=== PATIENT | female | born 1980 | race Caucasian/White ===

== ENCOUNTER 2016-12-20 07:57 | Inpatient (IN) | payer OTHER ==
[2016-12-20] VITALS (53 sets, daily range): BP systolic 79–137; BP diastolic 33–90; PULSE 53–166; RESP 16–20; TEMP 97.3–99; O2SAT 95–100
[~2016-12-20 07:57] MED LIST: ACET325T11 PO; IBUP600 PO; MULT-65 PO; OXYC1SOL5 PO; PERI8.6T PO; TUMS500C PO; UNIS25TA2
[2016-12-20] MEDS ORDERED: LACTATED RINGER'S 1000 ML INJ 1,000 ML IV PRN (08:46)
[2016-12-20] MEDS ORDERED: LACTATED RINGER'S 1000 ML INJ 1,000 ML IV SCH ×2 (08:46→18:11)
--- NOTE | 2016-12-20 08:56 | PD ---
HPI Chief Complaint contractions Date Seen: Dec 20, 2016 Travel History International Travel<30 Days: No Contact w/Intl Traveler<30Days: No Known Affected Area: No History of Present Illness HPI 36 yo @ 38w3d with NICHOL 12-31-2016. care with Dr. Diane. Uncomplicated . Desires DAVIE. Patient reports increased UC since 4am. No LOF, VB. +FM. History Past Medical History Narrative Medical Hx GDM Obstetric History Obstetric History for arrest of descent/FHR tracing Past Surgical History Narrative Surgical Family History Family History: Negative Social History Alcohol Use: No Tobacco Use: No Substance Abuse: No Allergies-Medications (Allergen,Severity, Reaction): Coded Allergies: No Known Allergies (Unverified , 04/05/13) Home Meds Active Scripts Oxycodone W/ Acetaminophen (Oxycodone/Acetaminophen 5-325 mg/5Ml)1 Tab Tab1 Tab PO Q4H PRN (PAIN SCALE 5 TO 10) #45 TAB Prov:Candy Diane MD 01/06/15 Ibuprofen (Motrin 600 Mg Tab)600 Mg [id number] Mg PO Q6H PRN (PAIN SCALE 1 TO 4) # 30 TAB Prov:Candy Diane MD 01/06/15 Sennosides-Docusate Sodium (Kary-Colace 8.6-50 mg)1 Tab Tab2 Tab PO Q12H #20 TAB Ref 0 Prov:Denisa Andujar CNM [employer] 01/05/15 Reported Medications Acetaminophen (Tylenol 325 Mg Tab)325 Mg [id number] Mg PO Q4 PRN (FEVER) 01/03/15 Calcium Carbonate (Tums)500 Mg [id number] Mg PO DAILY 01/03/15 Doxylamine Succinate (Sleep) (Unisom)25 Mg Tab 01/03/15 Multiple Vitamin (Multi-Vitamin Daily)Daily Tab1 Tab PO DAILY 04/05/13 Review of Systems General / Constitutional: No: Fever, Chills Eyes: No: Blurred Vision, Visual changes HENT: No: Headaches, Lightheadedness Cardiovascular: No: Chest Pain or Discomfort, Palpitations Respiratory: No: Cough, Short of Breath Gastrointestinal: Abdominal Pain (contractions), No: Nausea, Vomiting, Constipation, Loss of Appetite Genitourinary: No: Urgency, Frequency, Dysuria, Discharge, Vaginal Bleeding Musculoskeletal: No: Limited ROM, Weakness Skin: No Rash, No Itching Neurologic: No: Syncope, Focal Abnormalities Physical Exam Narrative GENERAL: Well-nourished, well-developed patient. SKIN: Warm and dry. HEAD: Normocephalic and atraumatic. EYES: No scleral icterus. No injection or drainage. ENT: No nasal drainage noted. Mucous membranes pink. Airway patent. NECK: trachea midline. No JVD. CARDIOVASCULAR: Regular rate RESPIRATORY: No accessory muscle use. ABDOMEN/GI: Abdomen soft, non-tender, no rebound, no guarding Gravid EFW 3500gm GENITOURINARY: External Genitalia: intact and normal in appearance BUS glands: [-] SVE 7/80/-2 Intact membranes FHT's: Category: I Baseline: 130 Reactive: +accelerations Variability: mod Decels: - EXTREMITIES: No cyanosis or edema. BACK: Nontender without obvious deformity. Normal ROM NEUROLOGICAL: Awake and alert. Motor and sensory grossly within normal limits. Normal speech. Data Data Vital Signs Reviewed: Yes Orders Ob (2e) Additional Admit Info (12/20/16 08:45) Admit To Inpatient (12/20/16 ) Code Status (12/20/16 08:46) Vital Signs (Adult) .Per protocol (12/20/16 08:46) ^ Heart (12/20/16 08:46) ^ Amnioinfusion (12/20/16 08:46) Urinary Catheter Management .ONCE (12/20/16 08:46) Diet Npo (12/20/16 Breakfast) Lactated Ringer's 1000 Ml Inj (Lr 1000 M (12/20/16 08:46) Lactated Ringer's 1000 Ml Inj (Lr 1000 M (12/20/16 08:46) Sodium Chlorid 0.9% 500 Ml Inj (Ns 500 M (12/20/16 09:00) Sodium Chlor 0.9% 1000 Ml Inj (Ns 1000 M (12/20/16 09:06) Lidocaine 1% Inj (50 Ml) (Xylocaine 1% I (12/20/16 09:00) Citric Acid-Sodium Citrate Liq (Bicitra (12/20/16 09:00) Ondansetron Inj (Zofran Inj) (12/20/16 09:00) Fentanyl Inj (Fentanyl Inj) (12/20/16 09:00) Fentanyl Inj (Fentanyl Inj) (12/20/16 09:00) Complete Blood Count With Diff (12/20/16 08:46) Hold Clot (12/20/16 08:46) Abo/Rh Blood Type (12/20/16 08:46) Resp Oxygen Non Rebreathe Mask (12/20/16 ) ^ Epidural / Intrathecal Infus (12/20/16 08:46) Oxytocin 30 Units-500ml Premix (Pitocin (12/20/16 09:00) Lidocaine 1% Inj (50 Ml) (Xylocaine 1% I (12/20/16 09:00) Light Mineral Oil (Muri-Lube Oil) (12/20/16 09:00) Inpatient Certification (12/20/16 ) MDM Narrative Course / MDM 38 weeks Desires DAVIE Active labor @ 7cm GBS negative CAT I FHT Plan Admit Expectant management AROM as appropriate Physician Communication Rebeka Mack MD Dec 20, 2016 08:56
[2016-12-20] MEDS ORDERED: CITRIC ACID-SODIUM CITRATE LIQ 30 ML UDC PO SCH (09:00)
[2016-12-20] MEDS ORDERED: SODIUM CHLORID 0.9% 500 ML INJ 500 ML IV PRN (09:00)
[2016-12-20] MEDS ORDERED: OXYTOCIN 30 UNITS-500ML PREMIX 500 ML IV ONE ×2 (09:00→13:15)
[2016-12-20] MEDS ORDERED: MINERAL OIL 10 ML VIAL TOPICAL PRN (09:00)
[2016-12-20] MEDS ORDERED: ONDANSETRON HCL 4 MG/2 ML VIAL IV PRN (09:00)
[2016-12-20] MEDS ORDERED: LIDOCAINE HCL 1% 50 ML VIAL INFIL PRN (09:00)
[2016-12-20] MEDS ORDERED: LIDOCAINE HCL 1% 50 ML VIAL I-DERMAL PRN (09:00)
--- NOTE | 2016-12-20 09:00 | HHI.HP ---
History & Physical H&P HPI HPI Chief Complaint contractions Date Seen: Dec 20, 2016 Travel History International Travel<30 Days: No Contact w/Intl Traveler<30Days: No Known Affected Area: No History of Present Illness HPI 36 yo @ 38w3d with NICHOL 12-31-2016. care with Dr. Diane. Uncomplicated . Desires DAVIE. Patient reports increased UC since 4am. No LOF, VB. +FM. History (Limited) History Past Medical History Narrative Medical Hx GDM Obstetric History Obstetric History for arrest of descent/FHR tracing Past Surgical History Narrative Surgical Family History Family History: Negative Social History Alcohol Use: No Tobacco Use: No Substance Abuse: No Allergies-Medications Allergies-Medications (Allergen,Severity, Reaction): Coded Allergies: No Known Allergies (Unverified , 04/05/13) Home Meds Active Scripts Oxycodone W/ Acetaminophen (Oxycodone/Acetaminophen 5-325 mg/5Ml)1 Tab Tab1 Tab PO Q4H PRN (PAIN SCALE 5 TO 10) #45 TAB Prov:Canyd Diane MD 01/06/15 Ibuprofen (Motrin 600 Mg Tab)600 Mg [id number] Mg PO Q6H PRN (PAIN SCALE 1 TO 4) # 30 TAB Prov:Candy Diane MD 01/06/15 Sennosides-Docusate Sodium (Kary-Colace 8.6-50 mg)1 Tab Tab2 Tab PO Q12H #20 TAB Ref 0 [facility] 01/05/15 Reported Medications Acetaminophen (Tylenol 325 Mg Tab)325 Mg [id number] Mg PO Q4 PRN (FEVER) 01/03/15 Calcium Carbonate (Tums)500 Mg [id number] Mg PO DAILY 01/03/15 Doxylamine Succinate (Sleep) (Unisom)25 Mg Tab 01/03/15 Multiple Vitamin (Multi-Vitamin Daily)Daily Tab1 Tab PO DAILY 04/05/13 ROS Review of Systems General / Constitutional: No: Fever, Chills Eyes: No: Blurred Vision, Visual changes HENT: No: Headaches, Lightheadedness Cardiovascular: No: Chest Pain or Discomfort, Palpitations Respiratory: No: Cough, Short of Breath Gastrointestinal: Abdominal Pain (contractions), No: Nausea, Vomiting, Constipation, Loss of Appetite Genitourinary: No: Urgency, Frequency, Dysuria, Discharge, Vaginal Bleeding Musculoskeletal: No: Limited ROM, Weakness Skin: No Rash, No Itching Neurologic: No: Syncope, Focal Abnormalities Physical Exam Physical Exam Narrative GENERAL: Well-nourished, well-developed patient. SKIN: Warm and dry. HEAD: Normocephalic and atraumatic. EYES: No scleral icterus. No injection or drainage. ENT: No nasal drainage noted. Mucous membranes pink. Airway patent. NECK: trachea midline. No JVD. CARDIOVASCULAR: Regular rate RESPIRATORY: No accessory muscle use. ABDOMEN/GI: Abdomen soft, non-tender, no rebound, no guarding Gravid EFW 3500gm GENITOURINARY: External Genitalia: intact and normal in appearance BUS glands: [-] SVE 7/80/-2 Intact membranes FHT's: Category: I Baseline: 130 Reactive: +accelerations Variability: mod Decels: - EXTREMITIES: No cyanosis or edema. BACK: Nontender without obvious deformity. Normal ROM NEUROLOGICAL: Awake and alert. Motor and sensory grossly within normal limits. Normal speech. Data Data Data Vital Signs Reviewed: Yes Orders Ob (2e) Additional Admit Info (12/20/16 08:45) Admit To Inpatient (12/20/16 ) Code Status (12/20/16 08:46) Vital Signs (Adult) .Per protocol (12/20/16 08:46) ^ Heart (12/20/16 08:46) ^ Amnioinfusion (12/20/16 08:46) Urinary Catheter Management .ONCE (12/20/16 08:46) Diet Npo (12/20/16 Breakfast) Lactated Ringer's 1000 Ml Inj (Lr 1000 M (12/20/16 08:46) Lactated Ringer's 1000 Ml Inj (Lr 1000 M (12/20/16 08:46) Sodium Chlorid 0.9% 500 Ml Inj (Ns 500 M (12/20/16 09:00) Sodium Chlor 0.9% 1000 Ml Inj (Ns 1000 M (12/20/16 09:06) Lidocaine 1% Inj (50 Ml) (Xylocaine 1% I (12/20/16 09:00) Citric Acid-Sodium Citrate Liq (Bicitra (12/20/16 09:00) Ondansetron Inj (Zofran Inj) (12/20/16 09:00) Fentanyl Inj (Fentanyl Inj) (12/20/16 09:00) Fentanyl Inj (Fentanyl Inj) (12/20/16 09:00) Complete Blood Count With Diff (12/20/16 08:46) Hold Clot (12/20/16 08:46) Abo/Rh Blood Type (12/20/16 08:46) Resp Oxygen Non Rebreathe Mask (12/20/16 ) ^ Epidural / Intrathecal Infus (12/20/16 08:46) Oxytocin 30 Units-500ml Premix (Pitocin (12/20/16 09:00) Lidocaine 1% Inj (50 Ml) (Xylocaine 1% I (12/20/16 09:00) Light Mineral Oil (Muri-Lube Oil) (12/20/16 09:00) Inpatient Certification (12/20/16 ) MDM MDM Narrative Course / MDM 38 weeks Desires DAVIE Active labor @ 7cm GBS negative CAT I FHT Plan Admit Expectant management AROM as appropriate Physician Communication Rebeka Mack MD Dec 20, 2016 08:56 Rebkea Hatch MD Dec 20, 2016 08:59
[2016-12-20] MEDS ORDERED: SODIUM CHLOR 0.9% 1000 ML INJ 1,000 ML IV PRN (09:06)
[2016-12-20] MEDS ORDERED: fentaNYL 2MCG-BUPIV 0.125% INJ 100 ML ONE (09:17)
[2016-12-20 09:53] LABS: AUTOMATED NEUTROPHIL # 5.9 TH/MM3 (1.8-7.7); BASOPHIL % 0.5 % (0.0-2.0); EOSINOPHIL % 0.4 % (0.0-4.0); HEMATOCRIT 34.9 % (35.0-46.0); HEMO FLAGS DIFF FINAL; LYMPH % 17.6 % (9.0-44.0); LYMPHOCYTE # 1.4 TH/MM3 (1.0-4.8); MEAN CELL VOLUME 88.4 FL (80.0-100.0); MEAN CORPUSCULAR HGB CONC 33.9 % (32.0-36.0); MONO % 6.7 % (0.0-8.0); NEUT % 74.8 % (16.0-70.0); PLATELET COUNT 168 TH/MM3 (150-450); RED BLOOD COUNT 3.95 MIL/MM3 (4.00-5.30); RED CELL DISTRIBUTION WIDTH 13.5 % (11.6-17.2); WHITE BLOOD COUNT 7.9 TH/MM3 (4.0-11.0)
[2016-12-20] MEDS ORDERED: ePHEDrine/NS 25 MG/5 ML SYR ONE ×2 (09:54→11:33)
[2016-12-20 10:07] LABS: BACTERIA, URINE OCC /hpf; BLOOD, URINE NEG (NEG); COMMENT (UR) CULT NOT INDICATED; CULTURE IF INDICATED CULT NOT INDICATED; GLUCOSE,URINE NEG (NEG); KETONE, URINE NEG (NEG); MUCUS URINE FEW /lpf (OCC); NITRITE,URINE NEG (NEG); SQUAMOUS EPITHELIAL CELL URINE 15 /hpf (0-5); URINE COLOR YELLOW (YELLW/STRAW)
[2016-12-20] MEDS ORDERED: OXYTOCIN 10 UNIT/ML AMP ONE (11:57)
[2016-12-20] MEDS ORDERED: DICLOFENAC SODIUM 37.5 MG/ML VIAL IV PUSH ONE (12:19)
[2016-12-20] MEDS ORDERED: MORPHINE SULFATE PF 5 MG/10 ML VIAL ONE (13:09)
[2016-12-20] MEDS ORDERED: ONDANSETRON HCL 4 MG/2 ML VIAL ONE (13:09)
[2016-12-20] MEDS ORDERED: SODIUM CHLORIDE 0.9% FLUSH 5 ML FLUSH IV PRN (13:15)
[2016-12-20] MEDS ORDERED: oxyCODONE/ACETAMINOPHEN 5 MG/325 MG TAB PO PRN ×2 (13:15)
[2016-12-20] MEDS ORDERED: ONDANSETRON HCL 4 MG/2 ML VIAL IV PUSH PRN (13:15)
[2016-12-20] MEDS ORDERED: ACETAMINOPHEN 1000 MG/100 ML VIAL IV ONE ×2 (13:15→15:52)
--- NOTE | 2016-12-20 13:15 | PD.OB.DELI ---
Procedure Note Section Procedure Pre Op Diagnosis: (1) History of delivery (2) Non-reassuring electronic monitoring tracing Post Op Diagnosis: (1) History of delivery (2) Non-reassuring electronic monitoring tracing Performed by Padmini Garcia Procedure: Repeat Low Transverse Sec (and scar revision) Indication for delivery: Nonreassuring heart tracing Informed consent obtained: For anesthesia, For procedure, Other (stat cd, consents previously signed) Confirmed correct: Other (no time out, stat procedure) Anesthesia: Epidural Medication prior to procedure: As documented in eMAR Monitoring during procedure: Blood pressure monitoring, Pulse oximetry Urinary catheter: ml urine output (100ml) Sterile preparation: With 10% povidone iodine (Betadine), With drapes to expose affected area Operative Features Skin Incision: Pfannenstiel Uterine Incision: Low transverse w/knife / blunt ext Membranes Ruptured: Amount of liquid (minimal), Appearance of fluid (blood tinged with arom) Presentation: Occiput anterior Delivery of infant: Uneventful : Male One Minute : 8 Five Minute : 9 Weight: 6 lb 12 oz Status of : Viable, Cord blood, Umbilical cord Placenta delivered: Intact Medications: Antibiotics, Oxytocin Estimated blood loss: 500ml Procedure tolerated: Well Maternal Complications: Anesthesia-related (hypotension) Maternal Condition: Stable Condition: Stable Procedure in detail see dictation Padmini Garcia MD Dec 20, 2016 13:15
--- NOTE | 2016-12-20 13:32 | RADRPT ---
EXAM DATE/TIME: 12/20/2016 12:56 [facility] COMPARISON: No previous studies available for comparison. INDICATIONS : Instrument count, emergency . MEDICAL HISTORY : None. SURGICAL HISTORY : None. ENCOUNTER: Initial ACUITY: 1 day PAIN SCORE: Non-responsive. LOCATION: abdomen FINDINGS: Supine view of the abdomen was performed. The abdominal bowel gas pattern is normal. No abnormal ma sses, calcifications, or organomegaly is seen. The osseous structures are unremarkable. No radiopaqu e foreign bodies. CONCLUSION: No radiopaque foreign bodies. Sunny Mendez Jr., MD on December 20, 2016 at 13:29 Board Certified Radiologist. This report was verified electronically.
[2016-12-20] MEDS ORDERED: OXYTOCIN 30 UNITS-500ML PREMIX 500 ML ONE (14:11)
[2016-12-20] MEDS ORDERED: EPIDURAL-DO NOT ADMINISTER ANTICOAGULANTS XX PRN (16:30)
[2016-12-20] MEDS ORDERED: EPIDURAL-NO SYSTEMIC NARCOTICS XX PRN (16:30)
[2016-12-20] MEDS ORDERED: EPIDURAL-NALOXONE HCL 0.4 MG/ML AMP IV PRN (16:30)
[2016-12-20] MEDS ORDERED: EPIDURAL-DIPHENHYDRAMINE HCL 50 MG CAP PO PRN (16:30)
[2016-12-20] MEDS ORDERED: EPIDURAL-DIPHENHYDRAMINE HCL 50 MG/ML VIAL IV PUSH PRN (16:30)
[2016-12-20] MEDS ORDERED: DO NOT ADMINISTER ANTICOAGULANTS XX PRN (16:45)
[2016-12-20] MEDS ORDERED: fentaNYL 2MCG-BUPIV 0.125% 100 ML EPIDURAL SCH (16:45)
[2016-12-20] MEDS ORDERED: ePHEDrine/NS 50 MG/5 ML SYR IV PRN (16:45)
[2016-12-20] MEDS ORDERED: NO SYSTEM NARCOTICS XX PRN (16:45)
[2016-12-20] MEDS: IBUPROFEN 600 MG TAB PO PRN (20:12)
--- NOTE | 2016-12-20 20:34 | HHI.DCPOC ---
Discharge Care Plan Diagnosis: (1) Status post repeat low transverse section Your Health Problems Are: delivery Report Symptoms to Your Doctor -Temperate above 100.5 degrees -Redness, of incision or excessive or foul smelling drainage -Unusual pain or calf pain -Increased vaginal bleeding -Painful or difficulty urinating -Feelings of extreme sadness or anxiety after 2 weeks Goals to Promote Your Health * To prevent worsening of your condition and complications * To maintain your health at the optimal level Directions to Meet Your Goals Take your medications as prescribed Follow your dietary instruction Follow activity as directed Ensure plenty of rest for recovery Drink fluids for hydration Keep your appointments as scheduled Take your immunizations and boosters as scheduled If your symptoms worsen call your PCP, if no PCP go to Urgent Care Center or Emergency Room Smoking is Dangerous to Your Health. Avoid second hand smoke Call the 24-hour crisis hotline for domestic abuse at Padmini Garcia MD Dec 20, 2016 20:34
[2016-12-20] MEDS ORDERED: SODIUM CHLORIDE 0.9% FLUSH 5 ML FLUSH IV SCH (21:00)
[2016-12-20] MEDS: SIMETHICONE 80 MG CHEWABLE TAB PO PRN (21:59)
[2016-12-20] MEDS ORDERED: OXYTOCIN 30 UNITS-500ML PREMIX 500 ML IV PRN (23:15)
[2016-12-21] MEDS: IBUPROFEN 600 MG TAB PO PRN ×4 (02:06→20:06)
[2016-12-21 04:00] VITALS: BP 103/64; PULSE 66; RESP 18; TEMP 98.6
[2016-12-21 05:51] LABS: AUTOMATED NEUTROPHIL # 11.5 TH/MM3 (1.8-7.7); BASOPHIL % 0.1 % (0.0-2.0); EOSINOPHIL # 0.1 TH/MM3 (0-0.4); EOSINOPHIL % 0.5 % (0.0-4.0); HEMO FLAGS DIFF FINAL; LYMPH % 6.6 % (9.0-44.0); LYMPHOCYTE # 0.9 TH/MM3 (1.0-4.8); MEAN CORPUSCULAR HEMOGLOBIN 29.9 PG (27.0-34.0); MEAN CORPUSCULAR HGB CONC 33.6 % (32.0-36.0); MONO % 6.1 % (0.0-8.0); NEUT % 86.7 % (16.0-70.0); PLATELET COUNT 163 TH/MM3 (150-450); RED BLOOD COUNT 3.48 MIL/MM3 (4.00-5.30); RED CELL DISTRIBUTION WIDTH 13.6 % (11.6-17.2); WHITE BLOOD COUNT 13.3 TH/MM3 (4.0-11.0)
[2016-12-21] MEDS: SIMETHICONE 80 MG CHEWABLE TAB PO PRN ×3 (08:09→20:06)
--- NOTE | 2016-12-21 08:48 | HHI.OB ---
Subjective Post Operative Day: 1 Remarks Doing well Objective Vitals/I&O Vital Signs Date Time Temp Pulse Resp B/P Pulse Ox O2 Delivery O2 Flow Rate FiO2 12/21/16 04:00 98.6 66 18 103/64 12/20/16 23:50 99.0 65 20 111/56 12/20/16 20:22 98.2 68 17 136/73 12/20/16 15:55 60 16 136/78 12/20/16 15:02 111/73 12/20/16 14:56 97.6 12/20/16 14:46 64 96 12/20/16 14:46 166 16 112/78 12/20/16 14:30 67 114/68 12/20/16 14:28 97.3 12/20/16 14:28 65 16 104/71 99 12/20/16 14:00 16 99/66 12/20/16 13:59 56 98 12/20/16 13:45 60 16 101/67 97 12/20/16 13:33 77 16 99/68 97 12/20/16 13:20 82 16 100/66 95 12/20/16 11:46 103 116/74 12/20/16 11:45 99 100 12/20/16 11:40 70 122/74 12/20/16 11:40 92 12/20/16 11:35 73 12/20/16 11:35 64 121/65 12/20/16 11:33 73 109/61 12/20/16 11:30 86 12/20/16 11:30 94 114/62 12/20/16 11:25 114/70 12/20/16 11:25 75 12/20/16 11:20 87 116/75 12/20/16 11:17 70 107/56 12/20/16 11:15 70 12/20/16 11:15 70 107/54 12/20/16 11:10 66 12/20/16 11:10 70 110/59 12/20/16 11:09 71 108/66 12/20/16 11:06 66 112/56 12/20/16 11:05 71 97/72 12/20/16 11:05 66 12/20/16 11:04 67 105/58 12/20/16 11:00 69 12/20/16 11:00 64 111/60 12/20/16 10:58 64 106/55 12/20/16 10:55 59 12/20/16 10:55 59 107/55 12/20/16 10:54 58 114/46 12/20/16 10:50 53 12/20/16 10:50 53 123/70 12/20/16 10:45 53 12/20/16 10:45 58 120/69 12/20/16 10:41 56 119/72 12/20/16 10:40 87 12/20/16 10:39 74 137/69 12/20/16 10:38 68 79/53 12/20/16 10:36 133 12/20/16 10:36 94/33 12/20/16 10:35 104 12/20/16 10:34 110/71 12/20/16 10:34 116 12/20/16 10:30 89 12/20/16 10:30 114 121/84 12/20/16 10:25 81 115/74 12/20/16 10:25 84 12/20/16 10:22 68 99/54 12/20/16 10:20 72 12/20/16 10:20 96/49 12/20/16 10:19 109 90/48 12/20/16 10:18 18 12/20/16 10:16 99 123/90 12/20/16 10:15 75 12/20/16 10:10 80 134/90 12/20/16 10:01 82 135/87 12/20/16 09:26 98.1 12/20/16 09:25 81 134/87 12/20/16 09:25 16 Result Diagram: 12/21/16 0544 Objective Remarks GENERAL: Well-nourished, well-developed patient. CARDIOVASCULAR: Regular rate and rhythm without murmurs, gallops, or rubs. RESPIRATORY: Breath sounds equal bilaterally. No accessory muscle use. ABDOMEN/GI: Abdomen soft, non-tender, bowel sounds present. Incision: Clean, dry and intact. Fundus: Firm, non-tender at umbilicus. GENITOURINARY: Light to moderate bleeding. EXTREMITIES: No cyanosis or edema, non-tender, without signs of DVT. Medications and IVs Current Medications Medications (Trade) Dose Ordered Sig/Tony Route Start Time Stop Time Status Last Admin (Lr 1000 ml Inj) 1,000 ml @ 100 mls/hr Q10H IV 12/20/16 18:11 12/21/16 14:10 12/20/16 19:30 (NS Flush) 2 ml BID IV 12/20/16 21:00 (NS Flush) 2 ml UNSCH PRN IV 12/20/16 13:15 (Mylicon Chew) 80 mg QID PRN PO 12/20/16 13:15 12/21/16 08:09 (Motrin) 600 mg Q6H PRN PO 12/20/16 13:15 12/21/16 07:52 (Percocet 5-325 Mg) 1 tab Q4H PRN PO 12/20/16 13:15 (Percocet 5-325 Mg) 2 tab Q4H PRN PO 12/20/16 13:15 (Kary-Colace) 2 tab Q12H PRN PO 12/20/16 13:15 (M-M-R Ii Inj) 0.5 ml ONCE ONCE SQ 12/21/16 16:00 12/21/16 16:01 (Boostrix Inj) 0.5 ml ONCE ONCE IM 12/21/16 16:00 12/21/16 16:01 (Zofran Inj) 4 mg Q6H PRN IV PUSH 12/20/16 13:15 Miscellaneous Information NO SYSTEMIC NARCOTICS TO BE GIVEN FO... UNSCH PRN XX 12/20/16 16:30 12/21/16 16:29 (Narcan Inj) 0.4 mg UNSCH PRN IV 12/20/16 16:30 12/21/16 16:29 (Benadryl Inj) 25 mg Q6H PRN IV PUSH 12/20/16 16:30 12/21/16 16:29 (Benadryl) 50 mg Q6H PRN PO 12/20/16 16:30 12/21/16 16:29 Miscellaneous Information ALL NURSING DEPARTMENTS UNSCH PRN XX 12/20/16 16:30 12/21/16 16:29 Miscellaneous Information No systemic narcotics to be given except... UNSCH PRN XX 12/20/16 16:45 12/21/16 16:44 Miscellaneous Information DO NOT ADMINISTER ANY ANTICOAGUL... UNSCH PRN XX 12/20/16 16:45 12/21/16 16:44 (fentaNYL 2MCG-BUPIV 0.125% INJ) 100 ml @ 0 mls/hr TITRATE EPIDURAL 12/20/16 16:45 (ePHEDrine/NS 50 MG/5 ML SYR) 10 mg UNSCH PRN IV 12/20/16 16:45 12/21/16 16:44 Assessment/Plan Assessment and Plan POD#1, Stable,doing well Discharge Planning does not meet criteria Attending Attestation Seen by Carroll Millard MD Dec 21, 2016 08:48
[2016-12-21] MEDS: ACETAMINOPHEN 325 MG TAB PO PRN ×3 (12:40→21:21)
[2016-12-21] MEDS ORDERED: DIPHTH/TETANUS/ACEL PERTUSSIS (BOOSTER) 0.5 ML VIAL/PFS IM ONE (16:00)
[2016-12-21] MEDS ORDERED: MEASLES, MUMPS, RUBELLA VACCINE 0.5 ML VIAL SQ ONE (16:00)
[2016-12-21] MEDS: DOCUSATE SODIUM 50 MG/SENNA 8.6 MG TAB PO PRN (20:05)
[2016-12-22] MEDS: ACETAMINOPHEN 325 MG TAB PO PRN ×4 (03:49→15:32)
[2016-12-22] MEDS: IBUPROFEN 600 MG TAB PO PRN ×3 (03:49→15:32)
[2016-12-22] MEDS: SIMETHICONE 80 MG CHEWABLE TAB PO PRN ×2 (04:02→09:48)
[2016-12-22] MEDS: DOCUSATE SODIUM 50 MG/SENNA 8.6 MG TAB PO PRN (09:48)
--- NOTE | 2016-12-22 10:33 | HHI.OB ---
Subjective Post Operative Day: 2 Remarks POD#2, stable, doing well Objective Result Diagram: 12/21/16 0544 Objective Remarks GENERAL: Well-nourished, well-developed patient. CARDIOVASCULAR: Regular rate and rhythm without murmurs, gallops, or rubs. RESPIRATORY: Breath sounds equal bilaterally. No accessory muscle use. ABDOMEN/GI: Abdomen soft, non-tender, bowel sounds present. Incision: Clean, dry and intact. Fundus: Firm, non-tender at umbilicus. GENITOURINARY: Light to moderate bleeding. EXTREMITIES: No cyanosis or edema, non-tender, without signs of DVT. Medications and IVs Current Medications Medications (Trade) Dose Ordered Sig/Tony Route Start Time Stop Time Status Last Admin (NS Flush) 2 ml BID IV 12/20/16 21:00 (NS Flush) 2 ml UNSCH PRN IV 12/20/16 13:15 (Mylicon Chew) 80 mg QID PRN PO 12/20/16 13:15 12/22/16 09:48 (Motrin) 600 mg Q6H PRN PO 12/20/16 13:15 12/22/16 09:48 (Percocet 5-325 Mg) 1 tab Q4H PRN PO 12/20/16 13:15 (Percocet 5-325 Mg) 2 tab Q4H PRN PO 12/20/16 13:15 (Kary-Colace) 2 tab Q12H PRN PO 12/20/16 13:15 12/22/16 09:48 Ondansetron HCl 4 mg 4 mg Q6H PRN IV PUSH 12/20/16 13:15 (fentaNYL 2MCG-BUPIV 0.125% INJ) 100 ml @ 0 mls/hr TITRATE EPIDURAL 12/20/16 16:45 (Tylenol) 650 mg Q4H PRN PO 12/21/16 12:30 12/22/16 06:40 Assessment/Plan Assessment and Plan POD#2; Stable,doing well. Plan discharge today Discharge Planning Plan discharge for today Attending Attestation Seen by Carroll Millard MD Dec 22, 2016 10:33
[2016-12-22] MEDS ORDERED: OXYC1TAB63 PO (10:35)
[2016-12-22] MEDS ORDERED: IBUP-232 PO (10:35)
--- NOTE | 2016-12-22 10:56 | PD.CIRC ---
Circumcision Procedure Note Procedure: Circumcision Pre-procedure diagnosis: circumcision Post-procedure diagnosis: circumcision Informed Consent: The risks, benefits, indications, potential complications, and alternatives were explained to the patient/family and informed consent obtained. The baby was brought to the procedure room where a time-out was done to ID the patient and the procedure. Performing Physician: Carroll Blank Anesthesia used: 1% lidocaine injected Type of block: dorsal penile block Device used: Mogen Description: The baby was prepped and draped in a sterile fashion. The procedure followed standard technique. The baby tolerated the procedure well without complication. Findings: Normal ext. genitalia Estimated blood loss: none Specimen: No Carroll Blank MD Dec 22, 2016 10:56
== END 2016-12-22 15:40 | disposition home or self-care (01) | DRG 766 ==
LOC: HOBED 07:57 → H2EA 08:52 → H1EA 15:25
PROVIDERS: ADMIT Obstetrics & Gynecology; ATTEND Obstetrics & Gynecology
PROC: 10D00Z1 Extraction of Products of Conception, Low, Open Approach (ICD-10-PCS; principal; 2016-12-20)
PROC: 00HU33Z Insertion of Infusion Device into Spinal Canal, Percutaneous Approach (ICD-10-PCS; 2016-12-20)
PROC: 3E0R3CZ (ICD-10-PCS; 2016-12-20)
DX: O34.211 Maternal care for low transverse scar from previous cesarean delivery (principal); O76 Abnormality in fetal heart rate and rhythm complicating labor and delivery; Z3A.38 38 weeks gestation of pregnancy; Z86.32 Personal history of gestational diabetes; Z37.0 Single live birth
CPT/HCPCS: 59025; 74000; 81001; 84112; 85025; 86900; 86901; 88307; J0131; J1130; J2274; J2405; J2590; J3010; J7120

== ENCOUNTER 2018-02-24 08:12 | Emergency (ER) | payer OTHER ==
[~2018-02-24] VITALS: Ht 162.6 cm; Wt 53.1 kg
[~2018-02-24 08:12] MED LIST changes: +IBUP-232 PO; +OXYC1TAB63 PO; -UNIS25TA2
[2018-02-24 08:16] VITALS: BP 113/74; PULSE 103; RESP 16; TEMP 97.8; O2SAT 98
[2018-02-24 08:33] VITALS: BP 113/74; PULSE 103; RESP 16; TEMP 97.8; O2SAT 98
[2018-02-24] MEDS ORDERED: IMIT100T PO (08:37)
[2018-02-24] MEDS ORDERED: ALPR.5 PO (08:37)
[2018-02-24] MEDS ORDERED: NAPR250T4 PO (08:37)
--- NOTE | 2018-02-24 09:08 | PD ---
HPI Chief Complaint: Pain: Acute or Chronic Time Seen by Provider: 08:56 Travel History International Travel<30 days: No Contact w/Intl Traveler<30days: No Traveled to known affect area: No History of Present Illness HPI This 37-year-old male says she has not been sleeping well for the last couple of days. Last night she had pain in the back of her chest. She is feeling sweaty and short of breath at times. She was feeling very anxious and nauseated. She has a history of anxiety and does take Xanax. She is to take it sporadically but recently has been taking it every day. She takes Imitrex for migraines and took one this morning. She says there is no chance of . She is currently breast-feeding. She had gestational diabetes. She says that since her children about 1 she has not been sleeping well and often relies on the Xanax to sleep. The pain she had in her back is quite severe but is not present now. He does not recall if it was pleuritic she does not recall having it before [facility] Past Medical History Hx Anticoagulant Therapy: No Diabetes: Yes (GESTATIONAL) Patient Takes Glucophage: No Diminished Hearing: No Headaches: Yes Immunizations Current: Yes Migraines: Yes Tetanus Vaccination: < 5 Years ?: Not Past Surgical History Section: Yes Social History Alcohol Use: No Tobacco Use: No Substance Use: No Allergies-Medications (Allergen,Severity, Reaction): Coded Allergies: No Known Allergies (Unverified Adverse Reaction, Unknown, 02/24/18) Reported Meds & Prescriptions Reported Meds & Active Scripts Active Reported Naproxen 250 Mg Tab 250 Mg PO BID Xanax (Alprazolam) 0.5 Mg Tab 0.5 Mg PO HS PRN Imitrex (Sumatriptan Succinate) 100 Mg Tab 100 Mg PO ONCE PRN If a satisfactory response has not been obtained at 2 hours, a second dose may be administered Review of Systems General / Constitutional: No: Fever, Chills Eyes: No: Diploplia HENT: No: Headaches, Vertigo Cardiovascular: Positive: Chest Pain or Discomfort, Palpitations Respiratory: Positive: Shortness of Breath Gastrointestinal: No: Vomiting, Diarrhea Genitourinary: Positive: Frequency Musculoskeletal: No: Myalgias Skin: No Rash, No Itching Neurologic: Positive: Weakness Psychiatric: Positive: Anxiety Endocrine: No: Cold Intolerance Hematologic/Lymphatic: No: Easy Bruising Physical Exam Narrative GENERAL: Well-developed female SKIN: Focused skin assessment warm/dry. HEAD: Atraumatic. Normocephalic. EYES: Pupils equal and round. No scleral icterus. No injection or drainage. ENT: No nasal bleeding or discharge. Mucous membranes pink and moist. NECK: Trachea midline. No JVD. CARDIOVASCULAR: Regular rate and rhythm. No murmur appreciated. RESPIRATORY: No accessory muscle use. Clear to auscultation. Breath sounds equal bilaterally. GASTROINTESTINAL: Abdomen soft, non-tender, nondistended. Hepatic and splenic margins not palpable. MUSCULOSKELETAL: No obvious deformities. No clubbing. No cyanosis. No edema. NEUROLOGICAL: Awake and alert. No obvious cranial nerve deficits. Motor grossly within normal limits. Normal speech. PSYCHIATRIC: Appropriate mood and affect; insight and judgment normal. Data Data Last Documented VS Vital Signs Date Time Temp Pulse Resp B/P (MAP) Pulse Ox O2 Delivery O2 Flow Rate FiO2 02/24/18 11:55 99 16 112/65 (81) 97 02/24/18 10:17 Room Air 02/24/18 08:33 97.8 Orders Orders Electrocardiogram (02/24/18 09:04) Complete Blood Count With Diff (02/24/18 09:04) Comprehensive Metabolic Panel (02/24/18 09:04) Troponin I (02/24/18 09:04) D-Dimer (02/24/18 09:04) Chest, Pa & Lat (02/24/18 09:04) Ed Urine Pregnancytest Poc (02/24/18 09:07) Ct Pulmonary Angiogram (02/24/18 10:29) Iohexol 350 Inj (Omnipaque 350 Inj) (02/24/18 11:10) Labs Laboratory Tests Test 02/24/18 09:00 White Blood Count 4.6 TH/MM3 Red Blood Count 4.88 MIL/MM3 Hemoglobin 14.6 GM/DL Hematocrit 43.2 % Mean Corpuscular Volume 88.4 FL Mean Corpuscular Hemoglobin 29.9 PG Mean Corpuscular Hemoglobin Concent 33.8 % Red Cell Distribution Width 12.8 % Platelet Count 180 TH/MM3 Mean Platelet Volume 8.7 FL Neutrophils (%) (Auto) 89.7 % Lymphocytes (%) (Auto) 6.0 % Monocytes (%) (Auto) 4.0 % Eosinophils (%) (Auto) 0.1 % Basophils (%) (Auto) 0.2 % Neutrophils # (Auto) 4.1 TH/MM3 Lymphocytes # (Auto) 0.3 TH/MM3 Monocytes # (Auto) 0.2 TH/MM3 Eosinophils # (Auto) 0.0 TH/MM3 Basophils # (Auto) 0.0 TH/MM3 CBC Comment DIFF FINAL Differential Comment D-Dimer Quantitative (PE/DVT) 2.08 MG/L FEU Blood Urea Nitrogen 8 MG/DL Creatinine 0.73 MG/DL Random Glucose 94 MG/DL Total Protein 7.4 GM/DL Albumin 3.4 GM/DL Calcium Level 8.7 MG/DL Alkaline Phosphatase 54 U/L Aspartate Amino Transf (AST/SGOT) 19 U/L Alanine Aminotransferase (ALT/SGPT) 16 U/L Total Bilirubin 0.3 MG/DL Sodium Level 137 MEQ/L Potassium Level 3.9 MEQ/L Chloride Level 106 MEQ/L Carbon Dioxide Level 24.7 MEQ/L Anion Gap 6 MEQ/L Estimat Glomerular Filtration Rate 90 ML/MIN Troponin I LESS THAN 0.02 NG/ML MDM Medical Decision Making Medical Screen Exam Complete: Yes Emergency Medical Condition: Yes Medical Record Reviewed: Yes Differential Diagnosis Differential includes atypical chest pain, coronary artery disease, pulmonary embolus, anxiety Narrative Course EKG shows sinus rhythm with mild tachycardia. Troponin is normal. A d-dimer was ordered and is elevated at 2 so a CTA has been ordered. The CTA is read as negative for pulmonary embolus. Workup is negative Diagnosis Primary Impression: Atypical chest pain Disposition: 01 DISCHARGE HOME Condition: Stable Kayden Olivera MD Feb 24, 2018 09:08
[2018-02-24 09:17] LABS: AUTOMATED NEUTROPHIL # 4.1 TH/MM3 (1.8-7.7); BASOPHIL % 0.2 % (0.0-2.0); EOSINOPHIL % 0.1 % (0.0-4.0); HEMATOCRIT 43.2 % (35.0-46.0); HEMOGLOBIN 14.6 GM/DL (11.6-15.3); LYMPHOCYTE # 0.3 TH/MM3 (1.0-4.8); MEAN CELL VOLUME 88.4 FL (80.0-100.0); MEAN CORPUSCULAR HEMOGLOBIN 29.9 PG (27.0-34.0); MEAN CORPUSCULAR HGB CONC 33.8 % (32.0-36.0); MEAN PLATELET VOLUME 8.7 FL (7.0-11.0); MONOCYTE # 0.2 TH/MM3 (0-0.9); NEUT % 89.7 % (16.0-70.0); PLATELET COUNT 180 TH/MM3 (150-450); RED BLOOD COUNT 4.88 MIL/MM3 (4.00-5.30); RED CELL DISTRIBUTION WIDTH 12.8 % (11.6-17.2); WHITE BLOOD COUNT 4.6 TH/MM3 (4.0-11.0)
--- NOTE | 2018-02-24 09:36 | RADRPT ---
EXAM DATE/TIME: 02/24/2018 09:07 [facility] COMPARISON: No previous studies available for comparison. INDICATIONS : Chest pain MEDICAL HISTORY : None. SURGICAL HISTORY : None. ENCOUNTER: Initial ACUITY: 2 days PAIN SCORE: 4/10 LOCATION: Bilateral chest FINDINGS: PA and lateral views of the chest demonstrate the lungs to be symmetrically aerated without evidence of mass, infiltrate or effusion. The cardiomediastinal contours are unremarkable. Osseous structure s are intact. CONCLUSION: No acute disease. Neil Narvaez MD on February 24, 2018 at 9:33 Board Certified Radiologist. This report was verified electronically.
[2018-02-24 09:50] LABS: ALBUMIN 3.4 GM/DL (3.4-5.0); BICARBONATE 24.7 MEQ/L (21.0-32.0); CALCIUM 8.7 MG/DL (8.5-10.1); GLUCOSE,RANDOM 94 MG/DL (74-106)
[2018-02-24 09:54] LABS: CREATININE 0.73 MG/DL (0.50-1.00); GLOMERULAR FILTRATION RATE 90 ML/MIN (>89)
[2018-02-24 09:55] LABS: CHLORIDE 106 MEQ/L (98-107); SODIUM (NA) 137 MEQ/L (136-145); TOTAL BILIRUBIN ADULT 0.3 MG/DL (0.2-1.0); TOTAL PROTEIN 7.4 GM/DL (6.4-8.2)
[2018-02-24 09:57] LABS: ALKALINE PHOSPHATASE 54 U/L (45-117)
[2018-02-24 09:58] LABS: TROPONIN I LESS THAN 0.02 NG/ML (0.02-0.05)
[2018-02-24 10:00] LABS: ALT (GPT) 16 U/L (10-53)
[2018-02-24 10:03] LABS: AST (GOT) 19 U/L (15-37); BLOOD UREA NITROGEN 8 MG/DL (7-18)
[2018-02-24 10:17] VITALS: BP 119/65; PULSE 96; RESP 16; O2SAT 99
[2018-02-24] MEDS ORDERED: IOHEXOL 350 MG/ML 10 ML VIAL (for RAD DIAG) IVCONTRAST ONE (11:10)
--- NOTE | 2018-02-24 11:17 | RADRPT ---
EXAM DATE/TIME: 02/24/2018 11:00 [facility] COMPARISON: No previous studies available for comparison. INDICATIONS : Back and chest pain since last night. Evaluate for pulmonary embolism. IV CONTRAST: 65 cc Omnipaque 350 (iohexol) IV RADIATION DOSE: 6.32 CTDIvol (mGy) MEDICAL HISTORY : None SURGICAL HISTORY : section. ENCOUNTER: Initial ACUITY: 2 days PAIN SCALE: 4/10 LOCATION: chest TECHNIQUE: Volumetric scanning of the chest was performed using a pulmonary embolism protocol MIP images were re constructed. Using automated exposure control and adjustment of the mA and/or kV according to patien t size, radiation dose was kept as low as reasonably achievable to obtain optimal diagnostic quality images. DICOM format image data is available electronically for review and comparison. Follow-up recommendations for detected pulmonary nodules are based at a minimum on nodule size and pa tient risk factors according to Fleischner Society Guidelines. FINDINGS: PULMONARY ARTERIES: No filling defects are seen in the pulmonary arteries through the segmental level. LUNGS: There is no consolidation or pneumothorax . No concerning pulmonary nodule is visualized. The lungs appear mildly hyperinflated. PLEURAE: There is no pleural thickening or pleural effusion. MEDIASTINUM: There is good visualization of the great vessels of the middle mediastinum. No evidence of mediastin al or hilar adenopathy/mass. MUSCULOSKELETAL: Within normal limits for patient age. MISCELLANEOUS: The visualized upper abdominal organs demonstrate no acute abnormality. CONCLUSION: 1. No evidence of pulmonary embolism. 2. The lungs are clear. Neil Narvaez MD on February 24, 2018 at 11:11 Board Certified Radiologist. This report was verified electronically.
[2018-02-24 11:55] VITALS: BP 112/65
--- NOTE | 2018-02-25 00:01 | EKG ---
Date Performed: 02/24/2018 Time Performed: 08:33:37 PTAGE: 37 years EKG: Sinus rhythm POSSIBLE LEFT ATRIAL ENLARGEMENT BORDERLINE ECG NO PREVIOUS TRACING DOCTOR: Francisco Hernandez Interpretating Date/Time 02/24/2018 23:59:40
[2018-02-25] MEDS ORDERED: SUMA6P SQ (12:37)
[2018-02-25] MEDS ORDERED: ZOFR4TAB3 SL (14:11)
== END 2018-02-24 12:06 | disposition home or self-care (01) ==
LOC: PHED 08:12
DX: R07.89 Other chest pain (principal); R00.0 Tachycardia, unspecified; R06.02 Shortness of breath; R11.0 Nausea; F41.9 Anxiety disorder, unspecified; E11.9 Type 2 diabetes mellitus without complications; Z79.899 Other long term (current) drug therapy
CPT/HCPCS: 71046; 71275; 80053; 84484; 84703; 85025; 85379; 93005; 99285; Q9967

== ENCOUNTER 2018-02-25 12:13 | Emergency (ER) | payer OTHER ==
[~2018-02-25 12:13] MED LIST changes: -ACET325T11 PO; +ALPR.5 PO; -IBUP-232 PO; -IBUP600 PO; +IMIT100T PO; -MULT-65 PO; +NAPR250T4 PO; -OXYC1SOL5 PO; -OXYC1TAB63 PO; -PERI8.6T PO; -TUMS500C PO
[2018-02-25 12:24] VITALS: BP 128/80; PULSE 108; RESP 16; TEMP 100.2; O2SAT 99
[2018-02-25] MEDS ORDERED: SUMA6P SQ (12:37)
[2018-02-25] MEDS ORDERED: SODIUM CHLOR 0.9% 1000 ML INJ 1,000 ML IV ONE (12:45)
[2018-02-25] MEDS ORDERED: PROCHLORPERAZINE INJ 10 MG/2 ML VIAL IV PUSH ONE (12:45)
[2018-02-25] MEDS ORDERED: KETOROLAC TROMETHAMINE 30 MG/ML (IVP) VIAL IV PUSH ONE (12:45)
--- NOTE | 2018-02-25 12:45 | PD ---
HPI Chief Complaint: Headache Time Seen by Provider: 12:29 Travel History International Travel<30 days: No Contact w/Intl Traveler<30days: No Traveled to known affect area: No History of Present Illness HPI This 37-year-old female is complaining of headache and vomiting. She says she started having a migraine headache around 230 this morning. Headache started fairly abruptly. It is a left-sided headache which is in the temporal and parietal area on the left side. It is throbbing in nature she has a history of migraine headaches. She says she gets about 1 a week. She says this is a little different from her usual migraine and that it is going further posteriorly. She also usually gets good relief with Imitrex but she has taken 4 doses of Imitrex both orally and subcu without much response. She has vomited 3 or 4 times. She was a patient in the emergency department yesterday. At that time she was complaining of some chest pain. She has not been having chest pain since. She is also had a pain in her posterior thorax which is been quite severe and the CTA was done which was negative. She had had a d-dimer that was elevated at 2. she is breast-feeding. She says she has had several bouts of diarrhea today PFSH Past Medical History Hx Anticoagulant Therapy: No Diabetes: Yes (GESTATIONAL) Patient Takes Glucophage: No Diminished Hearing: No Headaches: Yes Immunizations Current: Yes Migraines: Yes ?: Not Past Surgical History Section: Yes Social History Alcohol Use: No Tobacco Use: No Substance Use: No Allergies-Medications (Allergen,Severity, Reaction): Coded Allergies: No Known Allergies (Unverified Adverse Reaction, Unknown, 02/24/18) Reported Meds & Prescriptions Reported Meds & Active Scripts Active Reported Imitrex Inj (Sumatriptan Succinate) 6 Mg/0.5 Ml Inj 6 Mg SQ ONCE PRN May repeat dose in 1 hour if needed. Imitrex (Sumatriptan Succinate) 100 Mg Tab 100 Mg PO ONCE PRN If a satisfactory response has not been obtained at 2 hours, a second dose may be administered Review of Systems General / Constitutional: Positive: Fever, No: Chills Eyes: No: Diploplia, Blurred Vision HENT: Positive: Headaches Cardiovascular: No: Chest Pain or Discomfort, Palpitations Respiratory: No: Cough, Shortness of Breath Gastrointestinal: Positive: Vomiting, Diarrhea Musculoskeletal: No: Myalgias Neurologic: Positive: Weakness, No: Dizziness Hematologic/Lymphatic: No: Easy Bruising Physical Exam Narrative GENERAL: Well-developed female SKIN: Focused skin assessment warm/dry. HEAD: Atraumatic. Normocephalic. EYES: Pupils equal and round. No scleral icterus. No injection or drainage. ENT: No nasal bleeding or discharge. Mucous membranes pink and moist. NECK: Trachea midline. No JVD. Neck is supple. There is no new neck stiffness CARDIOVASCULAR: Regular rate and rhythm. No murmur appreciated. RESPIRATORY: No accessory muscle use. Clear to auscultation. Breath sounds equal bilaterally. GASTROINTESTINAL: Abdomen soft, non-tender, nondistended. Hepatic and splenic margins not palpable. MUSCULOSKELETAL: No obvious deformities. No clubbing. No cyanosis. No edema. NEUROLOGICAL: Awake and alert. No obvious cranial nerve deficits. Motor grossly within normal limits. Normal speech. PSYCHIATRIC: Appropriate mood and affect; insight and judgment normal. Data Data Last Documented VS Vital Signs Date Time Temp Pulse Resp B/P (MAP) Pulse Ox O2 Delivery O2 Flow Rate FiO2 02/25/18 12:33 16 99 02/25/18 12:24 100.2 108 128/80 (96) Orders Orders Complete Blood Count With Diff (02/25/18 12:40) Basic Metabolic Panel (Bmp) (02/25/18 12:40) Ct Brain W/O Iv Contrast(Rout) (02/25/18 12:40) Sodium Chlor 0.9% 1000 Ml Inj (Ns 1000 M (02/25/18 12:45) Prochlorperazine Inj (Compazine Inj) (02/25/18 12:45) Ketorolac Inj (Toradol Inj) (02/25/18 12:45) Loperamide (Imodium) (02/25/18 14:15) Labs Laboratory Tests Test 02/25/18 13:00 White Blood Count 3.1 TH/MM3 Red Blood Count 4.49 MIL/MM3 Hemoglobin 13.6 GM/DL Hematocrit 40.3 % Mean Corpuscular Volume 89.8 FL Mean Corpuscular Hemoglobin 30.2 PG Mean Corpuscular Hemoglobin Concent 33.7 % Red Cell Distribution Width 12.9 % Platelet Count 159 TH/MM3 Mean Platelet Volume 7.9 FL Neutrophils (%) (Auto) 76.5 % Lymphocytes (%) (Auto) 14.1 % Monocytes (%) (Auto) 8.4 % Eosinophils (%) (Auto) 0.6 % Basophils (%) (Auto) 0.4 % Neutrophils # (Auto) 2.4 TH/MM3 Lymphocytes # (Auto) 0.4 TH/MM3 Monocytes # (Auto) 0.3 TH/MM3 Eosinophils # (Auto) 0.0 TH/MM3 Basophils # (Auto) 0.0 TH/MM3 CBC Comment DIFF FINAL Differential Comment Blood Urea Nitrogen 7 MG/DL Creatinine 0.72 MG/DL Random Glucose 96 MG/DL Calcium Level 8.3 MG/DL Sodium Level 136 MEQ/L Potassium Level 3.4 MEQ/L Chloride Level 107 MEQ/L Carbon Dioxide Level 24.0 MEQ/L Anion Gap 5 MEQ/L Estimat Glomerular Filtration Rate 91 ML/MIN MDM Medical Decision Making Medical Screen Exam Complete: Yes Emergency Medical Condition: Yes Medical Record Reviewed: Yes Differential Diagnosis Differential includes viral syndrome, migraine headache, Narrative Course Patient has been given IV fluids, bruising and Toradol for headache she has had some improvement with her headache. I will prescribe Imodium for her diarrhea. Her CT scan is read as negative. Her white count is low suggestive of viral illness. Diagnosis Primary Impression: Migraine headache Additional Impression: Viral illness Scripts Ondansetron Odt (Zofran Odt) 4 Mg Tab 4 MG SL Q6HR Y for Nausea/Vomiting, #10 TAB 0 Refills Prov: Kayden Olivera MD 02/25/18 Disposition: 01 DISCHARGE HOME Condition: Stable Kayden Olivera MD Feb 25, 2018 12:45
[2018-02-25 13:09] LABS: AUTOMATED NEUTROPHIL # 2.4 TH/MM3 (1.8-7.7); BASOPHIL % 0.4 % (0.0-2.0); EOSINOPHIL % 0.6 % (0.0-4.0); HEMATOCRIT 40.3 % (35.0-46.0); HEMOGLOBIN 13.6 GM/DL (11.6-15.3); LYMPH % 14.1 % (9.0-44.0); LYMPHOCYTE # 0.4 TH/MM3 (1.0-4.8); MEAN CELL VOLUME 89.8 FL (80.0-100.0); MEAN CORPUSCULAR HEMOGLOBIN 30.2 PG (27.0-34.0); MEAN CORPUSCULAR HGB CONC 33.7 % (32.0-36.0); MEAN PLATELET VOLUME 7.9 FL (7.0-11.0); MONO % 8.4 % (0.0-8.0); MONOCYTE # 0.3 TH/MM3 (0-0.9); NEUT % 76.5 % (16.0-70.0); PLATELET COUNT 159 TH/MM3 (150-450); RED BLOOD COUNT 4.49 MIL/MM3 (4.00-5.30); RED CELL DISTRIBUTION WIDTH 12.9 % (11.6-17.2); WHITE BLOOD COUNT 3.1 TH/MM3 (4.0-11.0)
[2018-02-25 13:21] LABS: CALCIUM 8.3 MG/DL (8.5-10.1)
[2018-02-25 13:25] LABS: CREATININE 0.72 MG/DL (0.50-1.00)
--- NOTE | 2018-02-25 13:41 | RADRPT ---
EXAM DATE/TIME: 02/25/2018 13:19 [facility] COMPARISON: No previous studies available for comparison. INDICATIONS : Headache since yesterday. RADIATION DOSE: 48.50 CTDIvol (mGy) MEDICAL HISTORY : None SURGICAL HISTORY : section. ENCOUNTER: Initial ACUITY: 2 days PAIN SCALE: 8/10 LOCATION: cranial TECHNIQUE: Multiple contiguous axial images were obtained of the head. Using automated exposure control and adj ustment of the mA and/or kV according to patient size, radiation dose was kept as low as reasonably a chievable to obtain optimal diagnostic quality images. DICOM format image data is available electro nically for review and comparison. FINDINGS: CEREBRUM: The ventricles are normal for age. No evidence of midline shift, mass lesion, hemorrhage or acute in farction. No extra-axial fluid collections are seen. POSTERIOR FOSSA: The cerebellum and brainstem are intact. The 4th ventricle is midline. The cerebellopontine angle i s unremarkable. EXTRACRANIAL: The visualized portion of the orbits is intact. SKULL: The calvaria is intact. No evidence of skull fracture. CONCLUSION: No acute intracranial findings. Sebastian Purcell MD on February 25, 2018 at 13:27 Board Certified Radiologist. This report was verified electronically.
[2018-02-25] MEDS ORDERED: ZOFR4TAB3 SL (14:11)
[2018-02-25] MEDS ORDERED: LOPERAMIDE HCL 2 MG CAP PO ONE (14:15)
== END 2018-02-25 14:46 | disposition home or self-care (01) ==
LOC: PHED 12:13
DX: G43.909 Migraine, unspecified, not intractable, without status migrainosus (principal); B34.9 Viral infection, unspecified; R19.7 Diarrhea, unspecified
CPT/HCPCS: 70450; 80048; 85025; 96361; 96374; 96375; 99284; J0780; J1885; J7030